=== PATIENT | male | born 1955 | race Caucasian/White ===

== ENCOUNTER 2023-06-18 08:30 | Outpatient (RCR) | payer MEDICARE, SELFPAY ==
[2023-02-11 09:51] VITALS: BP 104/56; BP 96/58; BMI 36.0
[2023-03-09 15:40] VITALS: BP 108/69; BMI 34.5
--- NOTE | 2023-03-09 15:55 | MHC.CR.ITR ---
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 HE IS ENGAGING WITH STAFF AND OTHER PARTICIPANTS IN PROGRAM. HE HAS NOTED HE IS LOOKING FOR COUSELOR, BUT HAS STRUGGLED FINDING ONE COVERED BY HIS INSURANCE. ENCOURAGED HIM TO REACH OUT TO HIS INSURANCE COMPANY FOR A LIST OF LOCAL PROVIDERS. HE WILL FOLLOW UP. NO REAL CHANGES THIS DATE. MAX MET ACHIEVED IS 3.36 AND HIS HEART RHYTHM IS AFIB WITH RATE 80'S TO 110 S. NO CV SYMPTOMS NOTED. [Functional Assessment] -ECG Summary AFIB RATE 80'S TO 110'S -Home-Based Rehab Pt approved for home-based exercise -Comments HE WALKS MUCH OF 3 MILES IN A DAY WITH WALKING GROUP HE BELONGS TO. -Fall Risk No [Exercise Plan] [Intervention] -Exercise Prescription NuStep, Recumbent Bike, Recumbent Elliptical, Rower,Treadmill ,UBE,Upright Bike,Weights -Duration Intensity 36 Sessions -Exercise Minutes/Day 30 -Angina with Exercise No -Peak METs 3.36 [Home Exercise] -Mode WALK -Frequency 2/WEEK -Intensity LIGHT -Comments BELONGS TO A COUPLE WALKNG GROUPS [Exercise Education] -Exercise Education Exercise orientation, Exercise safety ,Home exercise, RPE,Self pulse checking,Signs and symptoms, Warmup/cooldown -Date Completed 02/11/23 -Initials CSP -Education Summary TAUGHT SELF PULSE TODAY. INTRODUCED RPE SCALE. INTRODUCTION TO THERA-BANDS HE IS INTERESTED IN GETTING A PULSE OXIMETER. [Exercise Goals] -Exercise Most Days of the Week Yes -Exercise 30-45 mins/day Yes -Target HR Range +20 - +30 beats above resting -Target RPE range 11-13 -Increase METS next 30 days 0.5-1.0 METS Every two weeks -METs goal by Discharge 4 METS [Nutrition] [Hyperlipidemia] -Are lab results available Yes -Hyperlipidemia Yes [Diabetes] -Diabetes Yes [Weight Management] -Weight 103.1 kg -BMI 34.5 [Drug/Alchohol Use] -Drug/Alcohol Use Yes -Comment USES EDIBLES. [Nutrition Plan] [Intervention] -Attended Nutrition Brochures [Nutrition Education] -Nutrition Education Diabetes and excercise, Hydration, Nutrition, Reading food labels,Signs and symptoms of Hypo/Hyper- glycemia -Date Completed 02/11/23 -Initials CSP -Education Summary REASSESSMENT 30 DAY: DOING WELL. EATING WELL [Nutrition Goals] -Goals BMI < 25, Fasting BG 80- 120 mg/dL,HDL > 40,LDL < 70, Total CHOL < 200 -Weight goal HE WOULD BE HAPPY TO LOSE 10 POUNDS [Psycho/Social] -Stage of Change Action -Occupation Retired -PHQ9 Score 12 -Interpretation of Score MODERATE . WILL FAX RESULTS BACK TO PCP. -Plan of Action/Follow-up MILDING HARD OF HEARING AND HE ALSO STATES HE HAS ADHD WHICH MAKES LEARNING NEW INFORMATION DIFFICULT AT TIMES. Pt ADMITS TO DEPRESSION AND HAS BEEN ON MEDICATION IN PAST. HE FEELS HOPEFUL FOR IMPROVEMENT WITH INCREASED EXERCISE. HE MENTIONS HE JUST MOVED TO THIS AREA AND THAT HAS BEEN EMOTIONALLY CHALLENGING. -Patient Self-Reports Depression Yes [Psycho/Social Plan] [Intervention] -Attended No consult needed [Psycho/Social Education] -Psycho/Social Education Advanced directives, Coping techniques, Depression and CAD,Positive support system, Relaxation Techniques, Reviewed PHQ9 Score w/pt, Sexuality and CAD,Signs and symptoms of CAD ,Stress management -Date Completed 02/11/23 -Initials CSP -Education Summary REVIEWED PHQ RESULTS. DISCUSSED IMPACT OF DEPRESSIONA ND STRESS ON HEART , AND HOW TAKING CARE OF MENTAL HEALTH WILL ALSO IMPROVE CARDIAC HEALTH. FOR RELAXATION HE READS ADN WALKS WITH WALKING GROUP. [Psycho/Social Goals] -Goals Improve depression screen score, Improve depressive symptoms,Manage /reduce stress -Comments HE IS HOPEFUL INCREASED EX WILL IMPROVE HIS EMOTIONAL STATE WELL. [Other Core Comp] [Hypertension] -Hypertention Yes -Resting BP: 108/69 -Comments BP'S REMAIN IN GOOD RANGE [Tobacco Use] -Change in Use No -Comments USED TO USE A NICOTINE REPLACEMENT BUT HAS NOT FOR A LONG WHILE. HE DID SMOKE FOR 40 YRS, THEN CUT BACK SIGNIFICANTLY IN 2018 AND QUIT COMPLETELY 2019 [Heart Failure] -Heart Failure Yes -Dyspnea at Rest No -Dyspnea with Exercise No [Other Core Comp Plan] [Other Core Comp Education] -Other Core Comp Education HF Disease progression, Medication compliance,Risk factor modifications, RPD Scale/SOB management, Smoking and CAD ,Tobacco triggers, Understanding hypertension, Not Applicable -Education Summary GIVEN BAG WITH INFORMATION ABOUT HEART HEALTH. REVIEWED MODIFABLE RISK FACTORS REPORTS MED COMPLIAN. IS INTERESTED IN GETTING PULSE OXIMETER TO ALSO MONITOR HIS PULMONARY DX. [Other Core Comp Goals] -Goals Improve dyspnea ,Manage risk factors,Manage signs and symptoms of CHF ,Medication compliance, Resting BP < 130/80,Tobacco cessation,Not Applicable [Medication Plan] [Intervention] -Medications ALFUZOSIN 10 MG DAILY ATORVASTATIN 40 MG DAILY CIALIS 10 MG DAILY FUROSEMIDE 20 MG DAILY ( RECENTLY DECREASED FROM 40 MG) JARDIANCE 10 MG DAILY METFORMIN 500 MG DAILY METOPROLOL SUCCINATE 150 MG DAILY PLAVIX 75 MG DAILY PROaIR PUFF PRN TRELEGY 1 PUFF DAILY PEPCID 40 MG DAILY -Compliance Patient reports compliance w/ prescribed meds [Medication Education] -Education Importance of medication compliance, Medication purpose, Medication schedule, Medication side effects -Date Completed 02/11/23 -Initials CSP -Education Summary UNDERSTANDS THE PURPOSE OF EACH OF HIS MEDICATIONS AND IS COMPLIANT. 30 DAY REASSESSMENT: CONTINUES WITH COMPLIANCE. [Medication Goals] -Goals Adherence to medication compliance
[2023-04-07 15:17] VITALS: BP 128/58; BMI 34.5
--- NOTE | 2023-04-07 15:55 | MHC.CR.ITR ---
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 HE IS ENGAGING WITH STAFF AND OTHER PARTICIPANTS IN PROGRAM. HE HAS NOTED HE IS LOOKING FOR COUSELOR, BUT HAS STRUGGLED FINDING ONE COVERED BY HIS INSURANCE. ENCOURAGED HIM TO REACH OUT TO HIS INSURANCE COMPANY FOR A LIST OF LOCAL PROVIDERS. HE WILL FOLLOW UP. NO REAL CHANGES THIS DATE. MAX MET ACHIEVED IS 3.36 AND HIS HEART RHYTHM IS AFIB WITH RATE 80'S TO 110 S. NO CV SYMPTOMS NOTED. 60 Day Reassessment: Pt has not been in for several days now. He has completed 14 sessions to date. Progress had been good however he has not attended since 03/18/23. Will follow up with call. He had been having some GI issues. Heart Rhythm Afib rate 80-120 ( rest and ex) [Functional Assessment] -ECG Summary AFIB RATE 80'S TO 110'S -Home-Based Rehab Pt approved for home-based exercise -Comments HE WALKS MUCH OF 3 MILES IN A DAY WITH WALKING GROUP HE BELONGS TO. 04/07/2023 Walks with group 2 times a week 1-3 miles each time. -Fall Risk No [Exercise Plan] [Intervention] -Exercise Prescription NuStep, Recumbent Bike, Recumbent Elliptical, Rower,Treadmill ,UBE,Upright Bike,Weights -Duration Intensity 36 Sessions -Exercise Minutes/Day 30 -Exercise Days/Week 5 -Angina with Exercise No -Peak METs 3.36 [Home Exercise] -Mode WALK -Frequency 2/WEEK -Intensity LIGHT -Comments BELONGS TO A COUPLE WALKNG GROUPS [Exercise Education] -Exercise Education Exercise orientation, Exercise safety ,Home exercise, RPE,Self pulse checking,Signs and symptoms, Warmup/cooldown -Date Completed 02/11/23 -Initials CSP -Education Summary TAUGHT SELF PULSE TODAY. INTRODUCED RPE SCALE. INTRODUCTION TO THERA-BANDS HE IS INTERESTED IN GETTING A PULSE OXIMETER. [Exercise Goals] -Exercise Most Days of the Week Yes -Exercise 30-45 mins/day Yes -Target HR Range +20 - +30 beats above resting -Target RPE range 11-13 -Increase METS next 30 days 0.5-1.0 METS Every two weeks -METs goal by Discharge 4 METS [Nutrition] [Hyperlipidemia] -Are lab results available Yes -Hyperlipidemia Yes -Comments education about cholesterol and sodium and hydration given [Diabetes] -Diabetes Yes [Weight Management] -Weight 103.1 kg -BMI 34.5 [Drug/Alchohol Use] -Drug/Alcohol Use Yes -Comment USES EDIBLES. [Nutrition Plan] [Intervention] -Attended Nutrition Brochures [Nutrition Education] -Nutrition Education Diabetes and excercise, Hydration, Nutrition, Reading food labels,Signs and symptoms of Hypo/Hyper- glycemia -Date Completed 02/11/23 -Initials CSP -Education Summary REASSESSMENT 30 DAY: DOING WELL. EATING WELL 60 Day reassessment: Having GI issues recently . [Nutrition Goals] -Goals BMI < 25, Fasting BG 80- 120 mg/dL,HDL > 40,LDL < 70, Total CHOL < 200 -Weight goal HE WOULD BE HAPPY TO LOSE 10 POUNDS [Psycho/Social] -Stage of Change Action -Occupation Retired -PHQ9 Score 12 -Interpretation of Score MODERATE . WILL FAX RESULTS BACK TO PCP. -Plan of Action/Follow-up MILDING HARD OF HEARING AND HE ALSO STATES HE HAS ADHD WHICH MAKES LEARNING NEW INFORMATION DIFFICULT AT TIMES. Pt ADMITS TO DEPRESSION AND HAS BEEN ON MEDICATION IN PAST. HE FEELS HOPEFUL FOR IMPROVEMENT WITH INCREASED EXERCISE. HE MENTIONS HE JUST MOVED TO THIS AREA AND THAT HAS BEEN EMOTIONALLY CHALLENGING. -Patient Self-Reports Depression Yes [Psycho/Social Plan] [Intervention] -Attended No consult needed [Psycho/Social Education] -Psycho/Social Education Advanced directives, Coping techniques, Depression and CAD,Positive support system, Relaxation Techniques, Reviewed PHQ9 Score w/pt, Sexuality and CAD,Signs and symptoms of CAD ,Stress management -Date Completed 02/11/23 -Initials CSP -Education Summary REVIEWED PHQ RESULTS. DISCUSSED IMPACT OF DEPRESSIONA ND STRESS ON HEART , AND HOW TAKING CARE OF MENTAL HEALTH WILL ALSO IMPROVE CARDIAC HEALTH. FOR RELAXATION HE READS ADN WALKS WITH WALKING GROUP. [Psycho/Social Goals] -Goals Improve depression screen score, Improve depressive symptoms,Manage /reduce stress -Comments HE IS HOPEFUL INCREASED EX WILL IMPROVE HIS EMOTIONAL STATE WELL. [Other Core Comp] [Hypertension] -Hypertention Yes -Resting BP: 128/58 -Comments BP'S REMAIN IN GOOD RANGE [Tobacco Use] -Change in Use No -Comments USED TO USE A NICOTINE REPLACEMENT BUT HAS NOT FOR A LONG WHILE. HE DID SMOKE FOR 40 YRS, THEN CUT BACK SIGNIFICANTLY IN 2018 AND QUIT COMPLETELY 2019 [Heart Failure] -Heart Failure Yes -Dyspnea at Rest No -Dyspnea with Exercise No [Other Core Comp Plan] [Other Core Comp Education] -Other Core Comp Education HF Disease progression, Medication compliance,Risk factor modifications, RPD Scale/SOB management, Smoking and CAD ,Tobacco triggers, Understanding hypertension, Not Applicable -Education Summary GIVEN BAG WITH INFORMATION ABOUT HEART HEALTH. REVIEWED MODIFABLE RISK FACTORS REPORTS MED COMPLIAN. IS INTERESTED IN GETTING PULSE OXIMETER TO ALSO MONITOR HIS PULMONARY DX. [Other Core Comp Goals] -Goals Improve dyspnea ,Manage risk factors,Manage signs and symptoms of CHF ,Medication compliance, Resting BP < 130/80,Tobacco cessation,Not Applicable [Medication Plan] [Intervention] -Medications ALFUZOSIN 10 MG DAILY ATORVASTATIN 40 MG DAILY CIALIS 10 MG DAILY FUROSEMIDE 20 MG DAILY ( RECENTLY DECREASED FROM 40 MG) JARDIANCE 10 MG DAILY METFORMIN 500 MG DAILY METOPROLOL SUCCINATE 150 MG DAILY PLAVIX 75 MG DAILY PROaIR PUFF PRN TRELEGY 1 PUFF DAILY PEPCID 40 MG DAILY -Compliance Patient reports compliance w/ prescribed meds [Medication Education] -Education Importance of medication compliance, Medication purpose, Medication schedule, Medication side effects -Date Completed 02/11/23 -Initials CSP -Education Summary UNDERSTANDS THE PURPOSE OF EACH OF HIS MEDICATIONS AND IS COMPLIANT. 30 DAY REASSESSMENT: CONTINUES WITH COMPLIANCE. 04/07/2023 continues with med compliance [Medication Goals] -Goals Adherence to medication compliance
[2023-05-03 16:33] VITALS: BP 128/58; BMI 34.5
--- NOTE | 2023-05-03 16:36 | MHC.CR.ITR ---
[address] [phone] F: [phone] Please see additional notes from [facility] Reass[facility]/ITP Cardiac Rehab Reassessment/ITP Start: 02/11/23 09:50 Freq: Status: Active Protocol: Activity Type Activity Date Activity User E-sign Co-sign Detail Recorded Client Recorded Date Recorded By Document 05/03/23 16:33 JOVANY Desktop 05/03/23 16:36 JOVANY 05/03/23 16:33 Cardiac Rehab Reassessment/ITP [Exercise] -Rail Director Required No -Preferred Language Maori -Progress Note Type 90-Day Note -Total Sessions Attended 14 -Comments DEPRESSIVE DISORDER 03/09/2023 30 DAY REASSESSMENT: KATERIN IS SHOWING PROGRESS. HE IS ENGAGING WITH STAFF AND OTHER PARTICIPANTS IN PROGRAM. HE HAS NOTED HE IS LOOKING FOR COUSELOR, BUT HAS STRUGGLED FINDING ONE COVERED BY HIS INSURANCE. ENCOURAGED HIM TO REACH OUT TO HIS INSURANCE COMPANY FOR A LIST OF LOCAL PROVIDERS. HE WILL FOLLOW UP. NO REAL CHANGES THIS DATE. MAX MET ACHIEVED IS 3.36 AND HIS HEART RHYTHM IS AFIB WITH RATE 80'S TO 110 S. NO CV SYMPTOMS NOTED. 60 Day Reassessment: Pt has not been in for several days now. He has completed 14 sessions to date. Progress had been good however he has not attended since 03/18/23. Will follow up with call. He had been having some GI issues. Heart Rhythm Afib rate 80-120 ( rest and ex) 90 Day Reassessment: Pt was called because he has not completed any more visits since last assessment: He reports GI difficulties and he saw a GI DIRECTOR EXPORT who prescribed soem fiber and something else he couldn't recall. Also states that his mental health has had some struggles. He understands that CR isgood for him and wants to try and return this week. He did ask if at some point we just tell him he can 't return and it was explained that we cannot keep holding his slot and so he agreed to attend this week. No functional goals to update . Attendance is a a good goal. If he does not attend this week, another call will be made to discontinue CR . [Functional Assessment] -ECG Summary AFIB RATE 80'S TO 110'S -Home-Based Rehab Pt approved for home-based exercise -Comments HE WALKS MUCH OF 3 MILES IN A DAY WITH WALKING GROUP HE BELONGS TO. 04/07/2023 Walks with group 2 times a week 1-3 miles each time. -Fall Risk No [Exercise Plan] [Intervention] -Exercise Prescription NuStep, Recumbent Bike, Recumbent Elliptical, Rower,Treadmill ,UBE,Upright Bike,Weights -Duration Intensity 36 Sessions -Exercise Minutes/Day 30 -Exercise Days/Week 5 -Angina with Exercise No -Peak METs 3.36 [Home Exercise] -Mode WALK -Frequency 2/WEEK -Intensity LIGHT -Comments BELONGS TO A COUPLE WALKNG GROUPS [Exercise Education] -Exercise Education Exercise orientation, Exercise safety ,Home exercise, RPE,Self pulse checking,Signs and symptoms, Warmup/cooldown -Date Completed 02/11/23 -Initials CSP -Education Summary TAUGHT SELF PULSE TODAY. INTRODUCED RPE SCALE. INTRODUCTION TO THERA-BANDS HE IS INTERESTED IN GETTING A PULSE OXIMETER. [Exercise Goals] -Exercise Most Days of the Week Yes -Exercise 30-45 mins/day Yes -Target HR Range +20 - +30 beats above resting -Target RPE range 11-13 -Increase METS next 30 days 0.5-1.0 METS Every two weeks -METs goal by Discharge 4 METS [Nutrition] [Hyperlipidemia] -Are lab results available Yes -Hyperlipidemia Yes -Comments education about cholesterol and sodium and hydration given [Diabetes] -Diabetes Yes [Weight Management] -Weight 103.1 kg -BMI 34.5 [Drug/Alchohol Use] -Drug/Alcohol Use Yes -Comment USES EDIBLES. [Nutrition Plan] [Intervention] -Attended Nutrition Brochures [Nutrition Education] -Nutrition Education Diabetes and excercise, Hydration, Nutrition, Reading food labels,Signs and symptoms of Hypo/Hyper- glycemia -Date Completed 02/11/23 -Initials CSP -Education Summary REASSESSMENT 30 DAY: DOING WELL. EATING WELL 60 Day reassessment: Having GI issues recently . [Nutrition Goals] -Goals BMI < 25, Fasting BG 80- 120 mg/dL,HDL > 40,LDL < 70, Total CHOL < 200 -Weight goal HE WOULD BE HAPPY TO LOSE 10 POUNDS [Psycho/Social] -Stage of Change Action -Occupation Retired -PHQ9 Score 12 -Interpretation of Score MODERATE . WILL FAX RESULTS BACK TO PCP. -Plan of Action/Follow-up MILDING HARD OF HEARING AND HE ALSO STATES HE HAS ADHD WHICH MAKES LEARNING NEW INFORMATION DIFFICULT AT TIMES. Pt ADMITS TO DEPRESSION AND HAS BEEN ON MEDICATION IN PAST. HE FEELS HOPEFUL FOR IMPROVEMENT WITH INCREASED EXERCISE. HE MENTIONS HE JUST MOVED TO THIS AREA AND THAT HAS BEEN EMOTIONALLY CHALLENGING. -Patient Self-Reports Depression Yes [Psycho/Social Plan] [Intervention] -Attended No consult needed [Psycho/Social Education] -Psycho/Social Education Advanced directives, Coping techniques, Depression and CAD,Positive support system, Relaxation Techniques, Reviewed PHQ9 Score w/pt, Sexuality and CAD,Signs and symptoms of CAD ,Stress management -Date Completed 02/11/23 -Initials CSP -Education Summary REVIEWED PHQ RESULTS. DISCUSSED IMPACT OF DEPRESSIONA ND STRESS ON HEART , AND HOW TAKING CARE OF MENTAL HEALTH WILL ALSO IMPROVE CARDIAC HEALTH. FOR RELAXATION HE READS ADN WALKS WITH WALKING GROUP. [Psycho/Social Goals] -Goals Improve depression screen score, Improve depressive symptoms,Manage /reduce stress -Comments HE IS HOPEFUL INCREASED EX WILL IMPROVE HIS EMOTIONAL STATE WELL. [Other Core Comp] [Hypertension] -Hypertention Yes -Resting BP: 128/58 -Comments BP'S REMAIN IN GOOD RANGE [Tobacco Use] -Change in Use No -Comments USED TO USE A NICOTINE REPLACEMENT BUT HAS NOT FOR A LONG WHILE. HE DID SMOKE FOR 40 YRS, THEN CUT BACK SIGNIFICANTLY IN 2018 AND QUIT COMPLETELY 2019 [Heart Failure] -Heart Failure Yes -Dyspnea at Rest No -Dyspnea with Exercise No [Other Core Comp Plan] [Other Core Comp Education] -Other Core Comp Education HF Disease progression, Medication compliance,Risk factor modifications, RPD Scale/SOB management, Smoking and CAD ,Tobacco triggers, Understanding hypertension, Not Applicable -Education Summary GIVEN BAG WITH INFORMATION ABOUT HEART HEALTH. REVIEWED MODIFABLE RISK FACTORS REPORTS MED COMPLIAN. IS INTERESTED IN GETTING PULSE OXIMETER TO ALSO MONITOR HIS PULMONARY DX. [Other Core Comp Goals] -Goals Improve dyspnea ,Manage risk factors,Manage signs and symptoms of CHF ,Medication compliance, Resting BP < 130/80,Tobacco cessation,Not Applicable [Medication Plan] [Intervention] -Medications ALFUZOSIN 10 MG DAILY ATORVASTATIN 40 MG DAILY CIALIS 10 MG DAILY FUROSEMIDE 20 MG DAILY ( RECENTLY DECREASED FROM 40 MG) JARDIANCE 10 MG DAILY METFORMIN 500 MG DAILY METOPROLOL SUCCINATE 150 MG DAILY PLAVIX 75 MG DAILY PROaIR PUFF PRN TRELEGY 1 PUFF DAILY PEPCID 40 MG DAILY -Compliance Patient reports compliance w/ prescribed meds [Medication Education] -Education Importance of medication compliance, Medication purpose, Medication schedule, Medication side effects -Date Completed 02/11/23 -Initials CSP -Education Summary UNDERSTANDS THE PURPOSE OF EACH OF HIS MEDICATIONS AND IS COMPLIANT. 30 DAY REASSESSMENT: CONTINUES WITH COMPLIANCE. 04/07/2023 continues with med compliance [Medication Goals] -Goals Adherence to medication compliance
[2023-06-01 08:36] VITALS: BP 128/58; BMI 34.5
--- NOTE | 2023-06-01 09:05 | MHC.CR.ITR ---
[address] [phone] F: [phone] Please see additional notes from [facility] Reassessment/ITP Cardiac Rehab Reassessment/ITP Start: 02/11/23 09:50 Freq: Status: Active Protocol: Activity Type Activity Date Activity User E-sign Co-sign Detail Recorded Client Recorded Date Recorded By Document 06/01/23 08:36 JOVANY [id number] 06/01/23 09:05 JOVANY 06/01/23 08:36 Cardiac Rehab Reassessment/ITP [Exercise] -Rn Ostomy Required No -Preferred Language Estonian -Progress Note Type 120-Day Note -Total Sessions Attended 12 -Comments DEPRESSIVE DISORDER 03/09/2023 30 DAY REASSESSMENT: KATERIN IS SHOWING PROGRESS. HE IS ENGAGING WITH STAFF AND OTHER PARTICIPANTS IN PROGRAM. HE HAS NOTED HE IS LOOKING FOR COUSELOR, BUT HAS STRUGGLED FINDING ONE COVERED BY HIS INSURANCE. ENCOURAGED HIM TO REACH OUT TO HIS INSURANCE COMPANY FOR A LIST OF LOCAL PROVIDERS. HE WILL FOLLOW UP. NO REAL CHANGES THIS DATE. MAX MET ACHIEVED IS 3.36 AND HIS HEART RHYTHM IS AFIB WITH RATE 80'S TO 110 S. NO CV SYMPTOMS NOTED. 60 Day Reassessment: Pt has not been in for several days now. He has completed 14 sessions to date. Progress had been good however he has not attended since 03/18/23. Will follow up with call. He had been having some GI issues. Heart Rhythm Afib rate 80-120 ( rest and ex) 90 Day Reassessment: Pt was called because he has not completed any more visits since last assessment: He reports GI difficulties and he saw a GI MANAGER IT SECURITY who prescribed soem fiber and something else he couldn't recall. Also states that his mental health has had some struggles. He understands that CR isgood for him and wants to try and return this week. He did ask if at some point we just tell him he can 't return and it was explained that we cannot keep holding his slot and so he agreed to attend this week. No functional goals to update . Attendance is a a good goal. If he does not attend this week, another call will be made to discontinue CR . 120 Day assessment: Pt has returned to CR with very inconsistent attendance. Will review other assessments. May have miss- calculated number of sessions. He has not achieved 14 as stated in previous notes. Most recent visits were, 03/18, 05.07, 05/13, 05/18. Max met achieved 3.36 on treadmill, however his HR went above target and had to reduce grade . He has participated in education about breathing techniques this last visit . Katerin has not attended any session since 05.18.23. Will call him and discuss finishing up CR sooner. It is difficult to achieve goals without proper attendance. [Functional Assessment] -ECG Summary AFIB RATE 80'S TO 110'S -Home-Based Rehab Pt approved for home-based exercise -Comments HE WALKS MUCH OF 3 MILES IN A DAY WITH WALKING GROUP HE BELONGS TO. 04/07/2023 Walks with group 2 times a week 1-3 miles each time. 06/01/23 He is still doing some walking. But not doing walking groups as regularly as he was. His GI issues and emotional state seem to impact engagement. He has been given informatin in past to -Fall Risk No [Exercise Plan] [Intervention] -Exercise Prescription NuStep, Recumbent Bike, Recumbent Elliptical, Rower,Treadmill ,UBE,Upright Bike,Weights -Duration Intensity 36 Sessions -Exercise Minutes/Day 30 -Exercise Days/Week 5 -Angina with Exercise No -Peak METs 3.36 [Home Exercise] -Mode WALK -Frequency 2/WEEK -Intensity LIGHT -Comments BELONGS TO A COUPLE WALKNG GROUPS [Exercise Education] -Exercise Education Exercise orientation, Exercise safety ,Home exercise, RPE,Self pulse checking,Signs and symptoms, Warmup/cooldown -Date Completed 02/11/23 -Initials CSP -Education Summary TAUGHT SELF PULSE TODAY. INTRODUCED RPE SCALE. INTRODUCTION TO THERA-BANDS HE IS INTERESTED IN GETTING A PULSE OXIMETER. [Exercise Goals] -Exercise Most Days of the Week Yes -Exercise 30-45 mins/day Yes -Target HR Range +20 - +30 beats above resting -Target RPE range 11-13 -Increase METS next 30 days 0.5-1.0 METS Every two weeks -METs goal by Discharge 4 METS [Nutrition] [Hyperlipidemia] -Are lab results available Yes -Hyperlipidemia Yes -Comments education about cholesterol and sodium and hydration given [Diabetes] -Diabetes Yes [Weight Management] -Weight 103.1 kg -BMI 34.5 [Drug/Alchohol Use] -Drug/Alcohol Use Yes -Comment USES EDIBLES. [Nutrition Plan] [Intervention] -Attended Nutrition Brochures [Nutrition Education] -Nutrition Education Diabetes and excercise, Hydration, Nutrition, Reading food labels,Signs and symptoms of Hypo/Hyper- glycemia -Date Completed 02/11/23 -Initials CSP -Education Summary REASSESSMENT 30 DAY: DOING WELL. EATING WELL 60 Day reassessment: Having GI issues recently . [Nutrition Goals] -Goals BMI < 25, Fasting BG 80- 120 mg/dL,HDL > 40,LDL < 70, Total CHOL < 200 -Weight goal HE WOULD BE HAPPY TO LOSE 10 POUNDS [Psycho/Social] -Stage of Change Action -Occupation Retired -PHQ9 Score 12 -Interpretation of Score MODERATE . WILL FAX RESULTS BACK TO PCP. -Plan of Action/Follow-up MILDING HARD OF HEARING AND HE ALSO STATES HE HAS ADHD WHICH MAKES LEARNING NEW INFORMATION DIFFICULT AT TIMES. Pt ADMITS TO DEPRESSION AND HAS BEEN ON MEDICATION IN PAST. HE FEELS HOPEFUL FOR IMPROVEMENT WITH INCREASED EXERCISE. HE MENTIONS HE JUST MOVED TO THIS AREA AND THAT HAS BEEN EMOTIONALLY CHALLENGING. -Patient Self-Reports Depression Yes [Psycho/Social Plan] [Intervention] -Attended No consult needed [Psycho/Social Education] -Psycho/Social Education Advanced directives, Coping techniques, Depression and CAD,Positive support system, Relaxation Techniques, Reviewed PHQ9 Score w/pt, Sexuality and CAD,Signs and symptoms of CAD ,Stress management -Date Completed 02/11/23 -Initials CSP -Education Summary REVIEWED PHQ RESULTS. DISCUSSED IMPACT OF DEPRESSION ND STRESS ON HEART , AND HOW TAKING CARE OF MENTAL HEALTH WILL ALSO IMPROVE CARDIAC HEALTH. FOR RELAXATION HE READS AND WALKS WITH WALKING GROUP. 06/01/23 at last visit again discussed that Emotional state can impact heart and encouraged to maintain regular attendance. [Psycho/Social Goals] -Goals Improve depression screen score, Improve depressive symptoms,Manage /reduce stress -Comments HE IS HOPEFUL INCREASED EX WILL IMPROVE HIS EMOTIONAL STATE WELL. [Other Core Comp] [Hypertension] -Hypertention Yes -Resting BP: 128/58 -Comments BP'S REMAIN IN GOOD RANGE [Tobacco Use] -Change in Use No -Comments USED TO USE A NICOTINE REPLACEMENT BUT HAS NOT FOR A LONG WHILE. HE DID SMOKE FOR 40 YRS, THEN CUT BACK SIGNIFICANTLY IN 2018 AND QUIT COMPLETELY 2019 [Heart Failure] -Heart Failure Yes -Dyspnea at Rest No -Dyspnea with Exercise No [Other Core Comp Plan] [Intervention] -Attended Recognizing Stressors,Self Monitoring BP [Other Core Comp Education] -Other Core Comp Education HF Disease progression, Medication compliance,Risk factor modifications, RPD Scale/SOB management, Smoking and CAD ,Tobacco triggers, Understanding hypertension, Not Applicable -Initials csp -Education Summary GIVEN BAG WITH INFORMATION ABOUT HEART HEALTH. REVIEWED MODIFABLE RISK FACTORS REPORTS MED COMPLIAN. IS INTERESTED IN GETTING PULSE OXIMETER TO ALSO MONITOR HIS PULMONARY DX. [Other Core Comp Goals] -Goals Improve dyspnea ,Manage risk factors,Manage signs and symptoms of CHF ,Medication compliance, Resting BP < 130/80,Tobacco cessation,Not Applicable -Comments Participated in Breathing education with Respiratory therapist. [Medication Plan] [Intervention] -Medications ALFUZOSIN 10 MG DAILY ATORVASTATIN 40 MG DAILY CIALIS 10 MG DAILY FUROSEMIDE 20 MG DAILY ( RECENTLY DECREASED FROM 40 MG) JARDIANCE 10 MG DAILY METFORMIN 500 MG DAILY METOPROLOL SUCCINATE 150 MG DAILY PLAVIX 75 MG DAILY PROaIR PUFF PRN TRELEGY 1 PUFF DAILY PEPCID 40 MG DAILY -Compliance Patient reports compliance w/ prescribed meds [Medication Education] -Education Importance of medication compliance, Medication purpose, Medication schedule, Medication side effects -Date Completed 02/11/23 -Initials CSP -Education Summary UNDERSTANDS THE PURPOSE OF EACH OF HIS MEDICATIONS AND IS COMPLIANT. 30 DAY REASSESSMENT: CONTINUES WITH COMPLIANCE. 04/07/2023 continues with med compliance 06/01/23 Continues with medication compliance. [Medication Goals] -Goals Adherence to medication compliance
[2023-06-28 07:20] VITALS: BP 104/56; BP 128/58; BP 96/58; BMI 34.5
--- NOTE | 2023-06-28 07:30 | MHC.CR.ITD ---
[address] [phone] F: [phone] Please see additional notes from [facility] Discharge/ITP Cardiac Rehab Discharge/ITP Start: 02/11/23 09:50 Freq: Status: Active Protocol: Activity Type Activity Date Activity User E-sign Co-sign Detail Recorded Client Recorded Date Recorded By Document 06/28/23 07:20 CHASE [id number] 06/28/23 07:30 [email or web address] 06/28/23 07:20 Cardiac Rehab Discharge/ITP [Exercise] -Clinic Physician Director Required No -Preferred Language Kinyarwanda -Total Sessions Attended 12 -Comments DEPRESSIVE DISORDER 03/09/2023 30 DAY REASSESSMENT: MIGUEL IS SHOWING PROGRESS. HE IS ENGAGING WITH STAFF AND OTHER PARTICIPANTS IN PROGRAM. HE HAS NOTED HE IS LOOKING FOR COUSELOR, BUT HAS STRUGGLED FINDING ONE COVERED BY HIS INSURANCE. ENCOURAGED HIM TO REACH OUT TO HIS INSURANCE COMPANY FOR A LIST OF LOCAL PROVIDERS. HE WILL FOLLOW UP. NO REAL CHANGES THIS DATE. MAX MET ACHIEVED IS 3.36 AND HIS HEART RHYTHM IS AFIB WITH RATE 80'S TO 110 S. NO CV SYMPTOMS NOTED. 60 Day Reassessment: Pt has not been in for several days now. He has completed 14 sessions to date. Progress had been good however he has not attended since 03/18/23. Will follow up with call. He had been having some GI issues. Heart Rhythm Afib rate 80-120 ( rest and ex) 90 Day Reassessment: Pt was called because he has not completed any more visits since last assessment: He reports GI difficulties and he saw a GI SILICATOR who prescribed soem fiber and something else he couldn't recall. Also states that his mental health has had some struggles. He understands that CR isgood for him and wants to try and return this week. He did ask if at some point we just tell him he can 't return and it was explained that we cannot keep holding his slot and so he agreed to attend this week. No functional goals to update . Attendance is a a good goal. If he does not attend this week, another call will be made to discontinue CR . 120 Day assessment: Pt has returned to CR with very inconsistent attendance. Will review other assessments. May have miss- calculated number of sessions. He has not achieved 14 as stated in previous notes. Most recent visits were, 9/ 7, 05.07, 05/13, 05/18. Max met achieved 3.36 on treadmill, however his HR went above target and had to reduce grade . He has participated in education about breathing techniques this last visit . Miguel has not attended any session since 05.18.23. Will call him and discuss finishing up CR sooner. It is difficult to achieve goals without proper attendance. Discharge: No visits since . Miguel called to report ongoing stomach issues. We discussed being discharged at this time, and returning in the future when he was feeling better. He had been encouraged to follow up with MD regarding GI issues and stress/anxiety if persists. [Functional Assessment] -6 Min Walk (distance in ft) 1,050 -Stress Test (Mode) WALK -METS Achieved 2.52 -Resting HR 95 -Resting BP 96/58 -Resting SpO2 95 -Exercise HR 101 -Exercise BP 104/56 -RPE 11 -ECG Summary AFIB RATE 80'S TO 110'S -Fall Risk No [Exercise Plan] [Intervention] -Exercise Prescription NuStep, Recumbent Bike, Recumbent Elliptical, Rower,Treadmill ,UBE,Upright Bike,Weights -Duration Intensity 36 Sessions -Exercise Minutes/Day 30 -Exercise Days/Week 5 -Angina with Exercise No -Peak METs 3.36 [Home Exercise] -Mode WALK -Frequency 2/WEEK -Intensity LIGHT -Comments BELONGS TO A COUPLE WALKNG GROUPS [Exercise Education] -Exercise Education Exercise orientation, Exercise safety ,Home exercise, RPE,Self pulse checking,Signs and symptoms, Warmup/cooldown -Date Completed 02/11/23 -Initials CSP -Education Summary TAUGHT SELF PULSE TODAY. INTRODUCED RPE SCALE. INTRODUCTION TO THERA-BANDS HE IS INTERESTED IN GETTING A PULSE OXIMETER. [Exercise Goals] -Exercise Most Days of the Week Yes -Exercise 30-45 mins/day Yes -Target HR Range +20 - +30 beats above resting -Target RPE range 11-13 -Increase METS next 30 days 0.5-1.0 METS Every two weeks -METs goal by Discharge 4 METS -Comments Discharge- Attained 3.36 METS. VSS. Tel. Afib [Nutrition] [Hyperlipidemia] -Are lab results available Yes -Hyperlipidemia Yes -Comments education about cholesterol and sodium and hydration given [Diabetes] -Diabetes Yes [Weight Management] -Weight 103.1 kg -BMI 34.5 -Comments Discharge-No change as of . [Drug/Alchohol Use] -Drug/Alcohol Use Yes -Comment USES EDIBLES. [Nutrition Plan] [Intervention] -Attended Nutrition Brochures [Nutrition Education] -Nutrition Education Diabetes and excercise, Hydration, Nutrition, Reading food labels,Signs and symptoms of Hypo/Hyper- glycemia -Date Completed 02/11/23 -Initials CSP -Education Summary REASSESSMENT 30 DAY: DOING WELL. EATING WELL 60 Day reassessment: Having GI issues recently . Discharge: As above. Miguel called to return to CR but was unable to attend due to stomach issues. [Nutrition Goals] -Goals BMI < 25, Fasting BG 80- 120 mg/dL,HDL > 40,LDL < 70, Total CHOL < 200 -Weight goal HE WOULD BE HAPPY TO LOSE 10 POUNDS [Psycho/Social] -Stage of Change Action -Occupation Retired -PHQ9 Score 12 -Interpretation of Score MODERATE . WILL FAX RESULTS BACK TO PCP. -Plan of Action/Follow-up MILDING HARD OF HEARING AND HE ALSO STATES HE HAS ADHD WHICH MAKES LEARNING NEW INFORMATION DIFFICULT AT TIMES. Pt ADMITS TO DEPRESSION AND HAS BEEN ON MEDICATION IN PAST. HE FEELS HOPEFUL FOR IMPROVEMENT WITH INCREASED EXERCISE. HE MENTIONS HE JUST MOVED TO THIS AREA AND THAT HAS BEEN EMOTIONALLY CHALLENGING. Discharge: Unable to reassess -Patient Self-Reports Depression Yes [Psycho/Social Plan] [Intervention] -Attended No consult needed [Psycho/Social Education] -Psycho/Social Education Advanced directives, Coping techniques, Depression and CAD,Positive support system, Relaxation Techniques, Reviewed PHQ9 Score w/pt, Sexuality and CAD,Signs and symptoms of CAD ,Stress management -Date Completed 02/11/23 -Initials CSP -Education Summary REVIEWED PHQ RESULTS. DISCUSSED IMPACT OF DEPRESSION ND STRESS ON HEART , AND HOW TAKING CARE OF MENTAL HEALTH WILL ALSO IMPROVE CARDIAC HEALTH. FOR RELAXATION HE READS AND WALKS WITH WALKING GROUP. 06/01/23 at last visit again discussed that Emotional state can impact heart and encouraged to maintain regular attendance. Discharge: Miguel expresses difficulty with stress. He stated he enjoyed music and was attending performances in the area. [Psycho/Social Goals] -Goals Improve depression screen score, Improve depressive symptoms,Manage /reduce stress -Comments HE IS HOPEFUL INCREASED EX WILL IMPROVE HIS EMOTIONAL STATE WELL. [Other Core Comp] [Hypertension] -Hypertention Yes -Resting BP: 128/58 -Comments BP'S REMAIN IN GOOD RANGE Discharge- BP 122/80 at rest and 124/80 with exercise. Post exercise BP was 104/54 [Tobacco Use] -Change in Use No -Comments USED TO USE A NICOTINE REPLACEMENT BUT HAS NOT FOR A LONG WHILE. HE DID SMOKE FOR 40 YRS, THEN CUT BACK SIGNIFICANTLY IN 2018 AND QUIT COMPLETELY 2019 [Heart Failure] -Dyspnea at Rest No -Dyspnea with Exercise No [Other Core Comp Plan] [Intervention] -Attended Recognizing Stressors,Self Monitoring BP [Other Core Comp Education] -Other Core Comp Education HF Disease progression, Medication compliance,Risk factor modifications, RPD Scale/SOB management, Smoking and CAD ,Tobacco triggers, Understanding hypertension, Not Applicable -Initials csp -Education Summary GIVEN BAG WITH INFORMATION ABOUT HEART HEALTH. REVIEWED MODIFABLE RISK FACTORS REPORTS MED COMPLIAN. IS INTERESTED IN GETTING PULSE OXIMETER TO ALSO MONITOR HIS PULMONARY DX. [Other Core Comp Goals] -Goals Improve dyspnea ,Manage risk factors,Manage signs and symptoms of CHF ,Medication compliance, Resting BP < 130/80,Tobacco cessation,Not Applicable -Comments Participated in Breathing education with Respiratory therapist. [Medication Plan] [Intervention] -Medications ALFUZOSIN 10 MG DAILY ATORVASTATIN 40 MG DAILY CIALIS 10 MG DAILY FUROSEMIDE 20 MG DAILY ( RECENTLY DECREASED FROM 40 MG) JARDIANCE 10 MG DAILY METFORMIN 500 MG DAILY METOPROLOL SUCCINATE 150 MG DAILY PLAVIX 75 MG DAILY PROaIR PUFF PRN TRELEGY 1 PUFF DAILY PEPCID 40 MG DAILY -Compliance Patient reports compliance w/ prescribed meds [Medication Education] -Education Importance of medication compliance, Medication purpose, Medication schedule, Medication side effects -Date Completed 02/11/23 -Initials CSP -Education Summary UNDERSTANDS THE PURPOSE OF EACH OF HIS MEDICATIONS AND IS COMPLIANT. 30 DAY REASSESSMENT: CONTINUES WITH COMPLIANCE. 04/07/2023 continues with med compliance 06/01/23 Continues with medication compliance. Discharge -No change from 05/18/23 [Medication Goals] -Goals Adherence to medication compliance -Comments Discharge-No issues expressed.
== END 2023-06-29 06:48 | disposition home or self-care (01) ==
LOC: HO.CR 08:30
PROVIDERS: PCP Internal Medicine; Visit Provider Internal Medicine Interventional Cardiology
DX: I21.4 Non-ST elevation (NSTEMI) myocardial infarction (principal); Z95.1 Presence of aortocoronary bypass graft
CPT/HCPCS: 93798